=== PATIENT | male | born 1965 | race Caucasian/White ===

== ENCOUNTER → 2021-06-08 12:47 | Outpatient (BNVA) | payer OTHER, SELFPAY | PROVIDERS: Referring Provider Family Medicine; Visit Provider Podiatrist Foot & Ankle Surgery | DX: M79.671 Pain in right foot (principal); M21.611 Bunion of right foot | CPT/HCPCS: 73630 ==

== ENCOUNTER 2021-07-25 07:03 | Outpatient (CLI) | payer OTHER, SELFPAY ==
--- NOTE | 2021-07-25 07:10 | US_ITS ---
WS: [id number] ULTRASOUND SOFT TISSUES RIGHT foot HISTORY: sanchez neuroma COMPARISON: None available. TECHNIQUE: 2-D and color Doppler imaging is submitted. Ultrasound is directed between the metatarsal heads of the RIGHT foot between the third and fourth me tatarsal heads. No soft tissue masses identified or change in echogenicity between the third and four th metatarsal heads. US/US soft tissue/extremity [id number] IMPRESSION: No Sanchez's neuroma noted between the third and fourth metatarsal heads.
--- NOTE | 2021-07-25 07:12 | XR_ITS ---
WS: [id number] Exam: XR foot RT min 3V* [id number] Date/Time of Exam: 07/25/2021 7:13 AM Reason For Exam: PAIN Comparison 06/08/2021. No fracture or dislocation. Degenerative narrowing of the first MP joint. No soft tissue foreign bodi es are seen. Small plantar heel spur. XR/XR foot RT min 3V* [id number] IMPRESSION: 1. No fracture or dislocation. Minimal degenerative changes.
== END 2021-07-25 07:04 | disposition home or self-care (01) ==
PROVIDERS: Visit Provider Podiatrist Foot & Ankle Surgery
DX: G57.60 Lesion of plantar nerve, unspecified lower limb (principal); M79.671 Pain in right foot
CPT/HCPCS: 73630; 76882

== ENCOUNTER → 2021-08-22 08:03 | Outpatient (BNVA) | payer OTHER, SELFPAY | PROVIDERS: Referring Provider Podiatrist Foot & Ankle Surgery; Visit Provider Specialist | DX: G57.91 Unspecified mononeuropathy of right lower limb (principal); M77.41 Metatarsalgia, right foot | CPT/HCPCS: 95885; 95908; 99202 ==

== ENCOUNTER → 2022-02-04 08:15 | Outpatient (BNVA) | payer OTHER, SELFPAY | PROVIDERS: Visit Provider Podiatrist Foot & Ankle Surgery | DX: M77.41 Metatarsalgia, right foot (principal); G57.91 Unspecified mononeuropathy of right lower limb | CPT/HCPCS: 99214 ==

== ENCOUNTER 2022-03-27 11:12 | Outpatient (CLI) | payer OTHER, SELFPAY ==
--- NOTE | 2022-03-27 11:45 | MR_ITS ---
WS: [id number] INDICATION: Chronic foot pain TECHNIQUE: MRI the RIGHT foot without gadolinium enhancement. T1 and T2 coronal PD, T2 axial PD axial and T1 sagittal STIR imaging FINDINGS: Palpable marker overlying the dorsal foot at the 3rd distal metatarsal. Intramuscular soft tissue edema with low T1 signal lesion extending between the 3rd and 4th metatarsals suspicious for M alan's neuroma. No drainable fluid collections. Degenerative arthritis at the 1st MTP with subchondral cystic change. Mild bunion deformity. No acute fractures. Mild degenerative narrowing involving the visualized IP joints. Mild hammertoe deformitie s. Distal Achilles appears normal. Tiny plantar calcaneal spur. Normal plantar aponeurosis. Fluid emma ng the flexor hallucis longus tendon sheath above and below the level of the ankle joint compatible w ith tenosynovitis. MR/MR foot RT wo con* [id number] IMPRESSION: 1. Suspected small Mora's neuroma in the area of concern between the heads o f the 3rd and 4th metatarsals with associated soft tissue edema. This is best s een on the coronal T1 and T2 imaging 2. Tenosynovitis along the flexor hallucis longus. 3. No other acute findings.
== END 2022-03-27 11:13 | disposition home or self-care (01) ==
LOC: RAD 11:17
PROVIDERS: Visit Provider Podiatrist Foot & Ankle Surgery
DX: M65.872 Other synovitis and tenosynovitis, left ankle and foot (principal)
CPT/HCPCS: 73718

== ENCOUNTER → 2022-04-15 09:04 | Outpatient (BNVA) | payer OTHER, SELFPAY | PROVIDERS: Visit Provider Podiatrist Foot & Ankle Surgery | DX: M79.671 Pain in right foot (principal); G57.91 Unspecified mononeuropathy of right lower limb; G57.61 Lesion of plantar nerve, right lower limb | CPT/HCPCS: 64455 ==

== ENCOUNTER → 2022-04-25 14:09 | Outpatient (BNVA) | payer OTHER, SELFPAY | PROVIDERS: PCP Nurse Practitioner Family; Visit Provider Podiatrist Foot & Ankle Surgery | DX: M77.41 Metatarsalgia, right foot (principal); G57.91 Unspecified mononeuropathy of right lower limb | CPT/HCPCS: 64455 ==

== ENCOUNTER → 2022-05-02 16:04 | Outpatient (BNVA) | payer OTHER, SELFPAY | PROVIDERS: PCP Nurse Practitioner Family; Visit Provider Podiatrist Foot & Ankle Surgery | DX: G57.91 Unspecified mononeuropathy of right lower limb (principal); G57.60 Lesion of plantar nerve, unspecified lower limb | CPT/HCPCS: 64455 ==

== ENCOUNTER → 2022-05-09 15:55 | Outpatient (BNVA) | payer OTHER, SELFPAY | PROVIDERS: PCP Nurse Practitioner Family; Visit Provider Podiatrist Foot & Ankle Surgery | DX: M77.41 Metatarsalgia, right foot (principal); G57.91 Unspecified mononeuropathy of right lower limb | CPT/HCPCS: 64455 ==

== ENCOUNTER → 2022-05-16 15:56 | Outpatient (BNVA) | payer OTHER, SELFPAY | PROVIDERS: PCP Nurse Practitioner Family; Visit Provider Podiatrist Foot & Ankle Surgery | DX: Z71.89 Other specified counseling (principal); G57.91 Unspecified mononeuropathy of right lower limb; G57.61 Lesion of plantar nerve, right lower limb | CPT/HCPCS: 64455 ==

== ENCOUNTER → 2022-05-23 14:16 | Outpatient (BNVA) | payer OTHER, SELFPAY | PROVIDERS: PCP Nurse Practitioner Family; Visit Provider Podiatrist Foot & Ankle Surgery | DX: Z71.89 Other specified counseling (principal); G57.91 Unspecified mononeuropathy of right lower limb; G57.60 Lesion of plantar nerve, unspecified lower limb | CPT/HCPCS: 64455; 99213 ==

== ENCOUNTER 2022-09-13 07:51 | Day surgery (SDC) | payer OTHER, SELFPAY ==
[2022-09-12 08:52] VITALS: BMI 26.6
[2022-09-13] VITALS (9 sets, daily range): BP systolic 126–154; BP diastolic 82–104; PULSE 68–98; RESP 18; TEMP 36.3–36.8; O2SAT 98–100
[2022-09-13] MEDS: gabapentin 300 mg Capsule PO (08:14)
[2022-09-13] MEDS: CELEcoxib 200 mg Capsule 400 MG PO (08:14)
[2022-09-13] MEDS: sodium chloride 0.9% 1,000 ML 30 ML IV (08:14)
--- NOTE | 2022-09-13 08:33 | ANES.PREANE2 ---
Pre-Anesthetic Assessment Height/Weight: Height 1.75 m Weight 81.647 kg Temp Pulse Resp BP Pulse Ox O2 Del Method 98.3 F 80 18 154/104 98 09/13/22 07:58 09/13/22 07:58 09/13/22 07:58 09/13/22 07:58 09/13/22 07:58 09/13/22 08:02 Preop Diagnosis: Mora's neuroma right foot Operation Date: 09/13/22 09:15 Proposed Procedures p Excision of Mora's neuroma right foot third intermetatarsal space 90407,G57.60(Right) - David Aguiar DPM Familial anesthetic complications: mild postop nausea Was Beta Perlita taken within 24 hours: N/A Was Clonidine taken within 24 hours: N/A Last intake: Intake Last Liquid Date 09/12/22 Last Liquid Time 19:30 Last Solid Date 09/12/22 Last Solid Time 19:30 Social No alcohol and No tobacco Exam alert, oriented x 3, clear to auscultation bilaterally and regular rate & rhythm Airway Mallampati: Class III Dentition: full CV/HEM Hypertension Anesthetic Plan ASA status: 2 Anesthesia: MAC Risk of > 500 ml blood loss (7ml/kg in children): No Medications/Allergies Home Medications Medication Instructions Recorded Confirmed Last Taken Type celecoxib 200 mg capsule 200 mg PO DAILY 06/08/21 09/12/22 09/12/22 History functional orthotic with #1 ea 06/08/21 05/23/22 Unknown Rx metatarsal pad mirtazapine 30 mg tablet 45 mg PO DAILY 06/08/21 09/13/22 09/12/22 History amlodipine 2.5 mg-benazepril 10 mg 1 cap PO DAILY 09/12/22 09/12/22 09/12/22 History capsule Allergies Allergy/AdvReac Type Severity Reaction Status Date / Time No Known Allergies Allergy Verified 05/23/22 14:34 Current Medications Generic Name Dose Route Start Last Admin Trade Name Freq PRN Reason Stop Dose Admin Sodium Chloride 1,000 mls @ 30 mls/hr 09/13/22 08:00 09/13/22 08:14 Sodium Chloride 0.9% IV 09/14/22 07:59 30 mls/hr .Q24H RAYMOND Administration PFSH Anesthesia Medical History Metatarsalgia, right foot Social History Smoking and tobacco status: never smoked Data Anesthesia Cardiac Studies: No Data to Display
--- NOTE | 2022-09-13 09:33 | W.PM.OPSUD ---
Surgery/Procedure H&P Update DATE OF PROCEDURE: September 13, 2022 DATE H&P PERFORMED: 09/13/22 CHANGES TO PREVIOUS DOCUMENTATION: none PREOP DIAGNOSIS: Mora's neuroma right foot PLANNED PROCEDURE: Operation Date: 09/13/22 09:15 Proposed Procedures p Excision of Mora's neuroma right foot third intermetatarsal space 07196,G57.60(Right) - David Aguiar DPM
--- NOTE | 2022-09-13 09:39 | P.HP_ITS ---
Providers/Chief Complaint Primary Care Provider: RAJINDER GOLDBERG APRN Chief Complaint: Lesion of plantar nerve, unspecified lower limb History of Present Illness Darrick Patrick is a 56 year old male?patient presenting to clinic for follow up on right foot pain. Patient is presenting today to discuss surgery. Patient locates the discomfort at the sole of the metatarsals that radiates across the top and up to the right ankle.?He rates his pain 6/10 at todays visit. He states he wears work boots all day long and works on concrete causing his pain to get worse. He states he experiences tingling and burning in his foot after standing for long periods of time. He states he regularly wears custom orthotics. Is accompanied by his . Patient denies any subjective nausea, vomiting, fever, chills, shortness of breath or chest pain. Review of Systems General: Reports: 10 or more systems reviewed and unremarkable except in HPI and below Const: Denies: fever(s) or chills Eyes: Denies: change in vision Card: Denies: chest pain or palpitations Resp: Denies: dyspnea or productive cough GI: Denies: abdominal pain, nausea or vomiting : Denies: flank pain Musc: Reports: extremity pain, joint pain, joint stiffness, limited range of motion and deformity Skin/Breast: Reports: skin tenderness; Denies: rash Neuro: Reports: difficulty walking; Denies: numbness in extremities, sensory changes or frequent falls Psych: Denies: suicidal ideation Jadiel/Lymph: Denies: easy bruising Medications/Allergies Home Medications Medication Instructions Recorded Confirmed Last Taken Type celecoxib 200 mg capsule 200 mg PO DAILY 06/08/21 09/12/22 09/12/22 History functional orthotic with #1 ea 06/08/21 05/23/22 Unknown Rx metatarsal pad mirtazapine 30 mg tablet 45 mg PO DAILY 06/08/21 09/13/22 09/12/22 History amlodipine 2.5 mg-benazepril 10 mg 1 cap PO DAILY 09/12/22 09/12/22 09/12/22 History capsule Allergies Allergy/AdvReac Type Severity Reaction Status Date / Time No Known Allergies Allergy Verified 05/23/22 14:34 PFSH PFSH: Medical History Metatarsalgia, right foot Social History Smoking and tobacco status: never smoked Vital Signs Vitals Signs: Last Vital Signs Temp 98.3 F 09/13/22 07:58 Pulse 80 09/13/22 07:58 Resp 18 09/13/22 07:58 BP 154/104 09/13/22 07:58 Pulse Ox 98 09/13/22 07:58 O2 Del Method 09/13/22 08:02 Weight: Weight last 48 hrs Weight 180 lb Physical Exam Narrative: EXAM NARRATIVE: Patient is alert and oriented ?3 and in no acute distress.? The following is a focused bilateral lower extremity exam. VASCULAR: Dorsalis pedis and posterior tibial arteries palpable +2.? Capillary refill time less than 3 seconds to the distal hallux bilaterally. Calf is supple and nontender proximally and distally.? No pedal edema appreciated.? Pedal hair growth present. NEUROLOGICAL: Positive Tinel's on percussion of right common peroneal nerve. DERMATOLOGICAL: There are no open sores or lesions noted to the lower extremities.? No erythema or ecchymosis present to the bilateral legs and feet. MUSCULOSKELETAL: Pain to palpation at right 3rd intermetatarsal space with positive Jesus's click.? No palpable mass along the course of the plantar fascia appreciated.? No pain to palpation along the course of the bilateral Achilles tendon.? No pain to palpation along the course posterior tibial tendon or peroneal tendons.? No pain with [id number] compression of calcaneus, bilaterally.? Muscle strength is 5/5 in all 3 cardinal planes pain-free without guarding to the foot and ankle, bilaterally. CARDIOVASCULAR: S1, S2, normal rate, normal rhythm. Dorsalis pedis and posterior tibial arteries palpable. LUNGS: Clear to auscltation, no use of acessory muscles, no crackles or wheezes. 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 -Has failed cortisone injections and conservative management with wide accommod ative shoes and orthotics as well as daily stretching.? -After a series of 5 injections of 4% sclerosing injection 0.5 cc each patient still experiencing pain and believes that the sclerosing injections are not offering him relief.? Would like to DC them. Discussed continuation of conservative management consisting of wide accommodative shoes, metatarsal pad, orthotics, daily stretching and activity modifications.? He has failed at home therapy, cortisone injections as well as sclerosing injections x5.? Discussed risks versus benefits of surgical excision of Mora's neuroma to the right third intermetatarsal space discussed both dorsal and plantar incision approach and subsequent recovery times, risks discussed include but are not limited to pain, bleeding, numbness, infection, damage to adjacent soft tissue structures, floating toe, De León sign, chronic numbness, paresthesias, phantom pain, stump neuroma, recurrence of neuroma, painful scar, surgical site dehiscence, delayed healing and need for further surgical intervention.? Patient wishes to proceed with surgical intervention at today's visit. Scheduled for Mora's neuroma excision right foot third intermetatarsal space. Scheduled for 09/13/2022, outpatient, general anesthesia. 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
[2022-09-13] MEDS: ceFAZolin 2,000 MG in sodium chloride 0.9% (plus) 50 ML 100 MG IV (09:40)
--- NOTE | 2022-09-13 10:17 | PM.OP ---
Operative Report Date of procedure: September 13, 2022 Pre-op diagnosis: Mora's neuroma right foot third intermetatarsal space. Post-op diagnosis: Mora's neuroma right foot third intermetatarsal space. Post-op findings: Thickening and enlargement of the third intermetatarsal/plantar nerve, right foot. Procedure done: Excision of Mora's neuroma right foot third intermetatarsal space 39581 Implants: 3-0 Prolene Specimens removed/disposition: None Pathology: Soft tissue specimen consistent with Mora's neuroma right third intermetatarsal space sent to pathology Surgeon: David Aguiar D.P.M. Paving And Surfacing Labourer: See intraoperative documentation Estimated blood loss: 5 14 IV fluids: 0 Urine output: 0 Complications: None Findings: See above Brief History: -Reviewed MRI of the right foot without contrast findings consistent with Mora's neuroma at the right third intermetatarsal space.? -Has failed cortisone injections and conservative management with wide accommodative shoes and orthotics as well as daily stretching.? -After a series of 5 injections of 4% sclerosing injection 0.5 cc each patient still experiencing pain and believes that the sclerosing injections are not offering him relief.? Would like to DC them. Discussed continuation of conservative management consisting of wide accommodative shoes, metatarsal pad, orthotics, daily stretching and activity modifications.? He has failed at home therapy, cortisone injections as well as sclerosing injections x5.? Discussed risks versus benefits of surgical excision of Mora's neuroma to the right third intermetatarsal space discussed both dorsal and plantar incision approach and subsequent recovery times, risks discussed include but are not limited to pain, bleeding, numbness, infection, damage to adjacent soft tissue structures, floating toe, De León sign, chronic numbness, paresthesias, phantom pain, stump neuroma, recurrence of neuroma, painful scar, surgical site dehiscence, delayed healing and need for further surgical intervention.? Patient has been n.p.o. since midnight. Wishes to proceed, no guarantees written, expressed or implied. Procedure: Under mild sedation the patient was brought to the operating room and remained on the gurney in supine position. A timeout was performed. Anesthesia was then administered by the anesthesia service. Local anesthesia injected by myself consisting of 2-1 mixture utilizing 20 cc of 0.25% Marcaine plain and 10 cc of Exparel injected subcutaneously in a grid like fashion both dorsally and plantarly to the right forefoot at third intermetatarsal space. A well-padded pneumatic tourniquet was applied to the right ankle. The right lower extremity was then scrubbed, prepped and draped utilizing normal aseptic technique. The right foot was exanguinated with an Esmarch bandage and the tourniquet was inflated to 250 mmHg. Attention was directed to the right plantar forefoot where a linear longitudinal incision was made at the plantar aspect of the right third intermetatarsal space starting at the webspace coursing proximally between the third and fourth metatarsal heads which were palpated, identified and incision was placed midline between them. Incision was made with a #15 blade through skin with sharp dissection through the fat pad down to the layer of neuroma which was visualized with direct visualization, all bleeders were ligated and cauterized as necessary. There was an enlargement and bulbous thickening at the bifurcation of the third plantar digital nerve at the right foot coursing through the third intermetatarsal space. This was transected distally at the branches and proximally at their most distal and proximal margin, proximal portion was tagged and sent to pathology for review. No other pathology identified. The incision was flushed with copious amounts of sterile skin solution and closed in a single layer fashion with 3-0 Prolene. The incision was then dressed with Adaptic, sterile 4 x 4, Kerlix and Christiano wrap followed by application of a cam boot and the tourniquet was then deflated at the right lower extremity. Distal digits had brisk capillary refill time with prompt hyperemic response appreciated intraoperatively. Patient was transferred to the PACU with vital signs stable and vascular status intact. Following a period of postoperative monitoring he will be discharged home is to be heel touch for transfers with a cam boot at all times. He was provided at home care instructions as well as schedule follow-up in podiatry clinic.
[2022-09-13] MEDS: HYDROcodone-acetaminophen 10-325 mg Tablet 1 TAB PO (11:28)
[2022-09-13] MEDS: ondansetron 2 mg/ML SDV 2 mL 4 MG IVP (11:30)
--- NOTE | 2022-09-13 14:40 | ANE.PACU2 ---
Inpatient post-anesthesia follow up: Airway intact: Yes Vital signs: Temperature 97.8 F Pulse Rate 68 Respiratory Rate 18 Blood Pressure 126/87 Pulse Oximetry 98 Oxygen Delivery Me thod Room Air Oxygen Flow Rate 10 Fraction of Inspir ed Oxygen Hydration adequate: Yes Nausea and vomiting: No Pain level: 1 Mental status: Baseline
== END 2022-09-13 11:41 | disposition home or self-care (01) ==
PROVIDERS: PCP Nurse Practitioner Family; Visit Provider Podiatrist Foot & Ankle Surgery
PROC: (CPT 28080; principal; 2022-09-13 09:05)
DX: G57.61 Lesion of plantar nerve, right lower limb (principal); I10 Essential (primary) hypertension
CPT/HCPCS: 28080; 88307; C9290; J0690; J1100; J2250; J2405; J2704; J3010; J3490; J7030

== ENCOUNTER → 2022-09-18 14:18 | Outpatient (BNVA) | payer OTHER, SELFPAY | PROVIDERS: PCP Nurse Practitioner Family; Visit Provider Podiatrist Foot & Ankle Surgery | DX: Z98.890 Other specified postprocedural states (principal); G57.91 Unspecified mononeuropathy of right lower limb; G57.61 Lesion of plantar nerve, right lower limb | CPT/HCPCS: 99024 ==

== ENCOUNTER → 2022-10-03 14:37 | Outpatient (BNVA) | payer OTHER, SELFPAY | PROVIDERS: PCP Nurse Practitioner Family; Visit Provider Podiatrist Foot & Ankle Surgery | DX: Z98.890 Other specified postprocedural states (principal); G57.91 Unspecified mononeuropathy of right lower limb; G57.60 Lesion of plantar nerve, unspecified lower limb | CPT/HCPCS: 99024 ==

== ENCOUNTER → 2022-10-24 13:08 | Outpatient (BNVA) | payer OTHER, SELFPAY | PROVIDERS: PCP Nurse Practitioner Family; Visit Provider Podiatrist Foot & Ankle Surgery | DX: Z98.890 Other specified postprocedural states (principal); G57.91 Unspecified mononeuropathy of right lower limb; G57.61 Lesion of plantar nerve, right lower limb | CPT/HCPCS: 99024 ==

== ENCOUNTER → 2022-11-28 15:12 | Outpatient (BNVA) | payer OTHER, SELFPAY | PROVIDERS: PCP Nurse Practitioner Family; Visit Provider Podiatrist Foot & Ankle Surgery | DX: Z98.890 Other specified postprocedural states (principal); G57.91 Unspecified mononeuropathy of right lower limb; G57.60 Lesion of plantar nerve, unspecified lower limb | CPT/HCPCS: 99024 ==

== ENCOUNTER → 2023-03-06 12:53 | Outpatient (BNVA) | payer OTHER, SELFPAY | PROVIDERS: PCP Nurse Practitioner Family; Visit Provider Podiatrist Foot & Ankle Surgery | DX: Z98.890 Other specified postprocedural states (principal); G57.91 Unspecified mononeuropathy of right lower limb; G57.61 Lesion of plantar nerve, right lower limb | CPT/HCPCS: 99213 ==

== ENCOUNTER → 2024-01-06 10:05 | Outpatient (BNVA) | payer OTHER, SELFPAY | PROVIDERS: PCP Nurse Practitioner Family; Visit Provider Psychiatry & Neurology Neurology | DX: R51.9 Headache, unspecified (principal); R06.83 Snoring | CPT/HCPCS: 99203 ==

== ENCOUNTER → 2024-08-31 13:40 | Outpatient (BNVA) | payer OTHER, SELFPAY | PROVIDERS: PCP Nurse Practitioner Family; Visit Provider Psychiatry & Neurology Neurology | DX: G43.909 Migraine, unspecified, not intractable, without status migrainosus; R29.90 Unspecified symptoms and signs involving the nervous system; R06.83 Snoring; R93.0 Abnormal findings on diagnostic imaging of skull and head, not elsewhere classified | CPT/HCPCS: 99212; 99213 ==

== ENCOUNTER 2024-09-03 08:30 | Outpatient (CLI) | payer OTHER, SELFPAY ==
--- NOTE | 2024-09-03 08:45 | MR_ITS ---
WS: [id number] MRI BRAIN WITH AND WITHOUT CONTRAST HISTORY: R51.9 - Headache, unspecified COMPARISON: None available. TECHNIQUE: Multiplanar imaging performed through the brain with MultiHance 17 ml's IV. No acute infarcts are seen. Chung-white matter differentiation is well preserved. On the FLAIR and T2 sequences there are several scattered hyperintense signal foci predominantly in the frontal lobes. No prior infarct. No signal abnormality extending to the corpus callosum. Posterior fossa and brainstem are negative. Normal hippocampus formation. No susceptibility artifacts or prior lacunar infarcts. Ventricles and extra-axial spaces are normal. Clivus and pituitary gland are normal. Visualized posterior fossa and brainstem are also normal. Postcontrast images are negative for masses or vascular malformations. Dural venous sinuses are normal. Paranasal sinuses: Well aerated with no significant disease. Mastoid air cells: Normal. Calvarium and scalp: Normal. MR/MR head wo/w con [id number] IMPRESSION: 1. No acute infarct or prior infarct. 2. Several scattered hyperintense foci predominantly in the frontal lobes. The se foci can be seen with small vessel disease, migraines, hypertension and diab etes. 3. No mass or abnormal enhancement. 4. No significant atrophy. Hippocampal lobes are normal.
[2024-09-03] MEDS: gadobenate dimeglumine 20 mL vial 17 ML IV (09:42)
== END 2024-09-03 08:31 | disposition home or self-care (01) ==
LOC: RAD 08:31
PROVIDERS: PCP Nurse Practitioner Family; Visit Provider Psychiatry & Neurology Neurology
DX: R90.82 White matter disease, unspecified (principal); R51.9 Headache, unspecified; R93.0 Abnormal findings on diagnostic imaging of skull and head, not elsewhere classified
CPT/HCPCS: 70553; A9577

== ENCOUNTER 2024-12-01 20:00 | Outpatient (CLI) | payer OTHER, SELFPAY | END 2024-12-01 20:01 | disposition home or self-care (01) | LOC: SLEEP 23:24 | PROVIDERS: PCP Nurse Practitioner Family; Visit Provider Nurse Practitioner | DX: G47.33 Obstructive sleep apnea (adult) (pediatric) (principal) | CPT/HCPCS: 95810 ==

== ENCOUNTER → 2025-01-03 13:57 | Outpatient (BNVA) | payer OTHER, SELFPAY | PROVIDERS: PCP Nurse Practitioner Family; Visit Provider Psychiatry & Neurology Neurology | DX: G93.2 Benign intracranial hypertension (principal); G43.909 Migraine, unspecified, not intractable, without status migrainosus; R29.90 Unspecified symptoms and signs involving the nervous system; R06.83 Snoring | CPT/HCPCS: 99212 ==

== ENCOUNTER 2025-01-11 08:45 | Outpatient (CLI) | payer OTHER, SELFPAY ==
--- NOTE | 2025-01-11 09:00 | FL_ITS ---
WS: [id number] LUMBAR PUNCTURE CLINICAL INFORMATION: R51.9 - Headache, unspecified COMPARISON: None. TECHNIQUE: Informed consent: The procedure and its potential risk and complications were discussed with the patient. Verbal and written consent was obtained. Timeout: A timeout was performed to confirm correct patient, procedure, and site. Patient was prepped and draped in the usual sterile fashion. Lidocaine 1% was used for local anesthesia. Utilizing fluoroscopic guidance, a 3.5 inch 22-gauge spinal needle was advanced into the subarachnoid space at L3-L4 via LEFT oblique sublaminar approach. Free flow of CSF was obtained. CSF was blood-tinged due to blood products in the needle hub. CSF partially cleared with additional drainage but was still somewhat cloudy. 13 cc of CSF was collected and sent the lab for further analysis. FLUOROSCOPIC TIME: 1min [id number] # of spot films: 1 FL/FL guided lumbarpunc dx* [id number] IMPRESSION: Fluoroscopically guided lumbar puncture. No immediate complications Opening pressure 11cm of H2O Closing pressure 9 cm of H2O
== END 2025-01-11 08:46 | disposition home or self-care (01) ==
PROVIDERS: PCP Nurse Practitioner Family; Visit Provider Psychiatry & Neurology Neurology
DX: R51.9 Headache, unspecified (principal); G93.2 Benign intracranial hypertension
CPT/HCPCS: 62328; J9999

== ENCOUNTER 2025-01-17 20:00 | Outpatient (CLI) | payer OTHER, SELFPAY | END 2025-01-17 20:01 | disposition home or self-care (01) | LOC: SLEEP 21:10 | PROVIDERS: PCP Nurse Practitioner Family; Visit Provider Nurse Practitioner | DX: G47.33 Obstructive sleep apnea (adult) (pediatric) (principal) | CPT/HCPCS: 95811 ==

== ENCOUNTER → 2025-09-27 09:30 | Outpatient (BNVA) | payer OTHER, SELFPAY | PROVIDERS: PCP Nurse Practitioner Family; Visit Provider Orthopaedic Surgery | DX: M25.562 Pain in left knee (principal); G89.29 Other chronic pain | CPT/HCPCS: 73560; 73565; 99204 ==